=== PATIENT | male | born 1960 | race Caucasian/White ===

== ENCOUNTER 2021-12-03 13:19 | Emergency (ER) | payer BC ==
[~2021-12-03] VITALS: Ht 188 cm; Wt 89.6 kg
[~2021-12-03 13:19] MED LIST: ASPI-482 PO; ATOR40TA PO
[2021-12-03] MEDS: IV NORMAL SALINE 1000ML BAG 1,000 ML IV SCH (13:45)
[2021-12-03 13:56] LABS: BARBITURATES NEG (NEG); BENZODIAZEPINES NEG (NEG); CANNABINOIDS NEG (NEG); COCAINE NEG (NEG); METHADONE NEG (NEG); OPIATES NEG (NEG); PHENCYCLIDINE NEG (NEG)
[2021-12-03 13:57] LABS: AMPHETAMINE/METHAMPHETAMINE NEG (NEG)
[2021-12-03 13:59] LABS: BASO # 0.1 x10^3/uL (0.0-0.2); BASO % 1 % (0-3); EOS # 0.1 x10^3/uL (0.0-0.7); EOS % 1 % (0-3); HEMATOCRIT 46.2 % (39.0-53.0); HEMOGLOBIN 15.8 g/dL (13.0-17.5); LYMPH # 1.6 x10^3/uL (1.0-4.8); LYMPH % 15 % (24-48); MEAN CORPUSCULAR HEMOGLOBIN 32 pg (25-35); MEAN CORPUSCULAR HGB CONC 34 g/dL (31-37); MEAN CORPUSCULAR VOLUME 93 fL (79-100); MONO # 0.8 x10^3/uL (0.0-1.1); MONO % 8 % (0-9); NEUT # 8.1 x10^3/uL (1.8-7.7); NEUT % 76 % (31-73); PLATELET COUNT 305 x10^3/uL (140-400); RED BLOOD COUNT 4.98 x10^6/uL (4.30-5.70); RED CELL DISTRIBUTION WIDTH 14.2 % (11.5-14.5); WHITE BLOOD COUNT 10.6 x10^3/uL (4.0-11.0)
[2021-12-03 14:00] LABS: BACTERIA,URINE 0 /HPF (0-FEW)
--- NOTE | 2021-12-03 14:07 | PHYS DOC ---
Past Medical History Past Medical History: No Pertinent History Past Surgical History: Other Additional Past Surgical Histo: HERNIA SURGERY X 2, SHOULDER SURGERY Smoking Status: Current Every Day Smoker Alcohol Use: Occasionally Drug Use: None General Adult EDM: Chief Complaint: ABDOMINAL PAIN HPI: HPI: Patient is a 61 year old male who presents with right lower quadrant pain that is burning, lack of appetite for the last week, constipation, low back pain. He denies nausea, vomiting, diarrhea, fever, chest pain, shortness of air, headac he, dizziness, blood in his stool, urinary symptoms, blood in his urine. He rates his pain an 8 out of 10. States that nothing really makes it worse or better. History of smoking, hypertension, BPH, hernia surgery x2, shoulder surgery, hip replacement. Review of Systems: Review of Systems: Constitutional: Denies fever or chills. [] Eyes: Denies change in visual acuity. [] HENT: Denies nasal congestion or sore throat. [] Respiratory: Denies cough or shortness of breath. [] Cardiovascular: Denies chest pain or edema. [] GI: + abdominal pain, denies nausea, vomiting, bloody stools or diarrhea. + C onstipation . + Lack of appetite [] : Denies dysuria. [] Musculoskeletal: Denies back pain or joint pain. + Generalized weakness [] Integument: Denies rash. [] Neurologic: Denies headache, focal weakness or sensory changes. [] Endocrine: Denies polyuria or polydipsia. [] Lymphatic: Denies swollen glands. [] Psychiatric: Denies depression or anxiety. [] Heart Score: C/O Chest Pain: No Current Medications: Current Medications Medications (Trade) Dose Ordered Sig/Max Start Time Stop Time Status Last Admin Dose Admin Sodium Chloride 1,000 ml @ 1,000 mls/hr Q1H 12/03/21 13:45 12/03/21 14:44 Allergies: Allergies: Allergies Coded Allergies Type Severity Reaction Last Updated Verified No Known Drug Allergies 06/20/15 No Physical Exam: PE: Constitutional: Well developed, well nourished, no acute distress, non-toxic appearance. [] HENT: Normocephalic, atraumatic, bilateral external ears normal, oropharynx moist, no oral exudates, nose normal. [] Eyes: PERRLA, EOMI, conjunctiva normal, no discharge. [] Neck: Normal range of motion, no tenderness, supple, no stridor. [] Cardiovascular:Heart rate regular rhythm, no murmur [] Lungs & Thorax: Bilateral breath sounds clear to auscultation [] Abdomen: Bowel sounds normal, soft, RLQ tenderness, no masses, no pulsatile ma sses. [] Skin: Warm, dry, no erythema, no rash. [] Back: No tenderness, no CVA tenderness. [] Extremities: No tenderness, no cyanosis, no clubbing, ROM intact, no edema. [] Neurologic: Alert and oriented X 3, normal motor function, normal sensory function, no focal deficits noted. [] Psychologic: Affect normal, judgement normal, mood normal. [] Current Patient Data: Labs: Laboratory Tests Test 12/03/21 13:35 Urine Collection Type Void Urine Color (Auto) Yellow Urine Turbidity Clear Urine pH (Auto) 5.0 (<5.0-8.0) Urine Specific [place] 1.029 (1.000-1.030) Urine Protein (Auto) Negative mg/dL (Negative) Urine Glucose (Auto)(UA) Negative mg/dL (Negative) Urine Ketones (Auto) 10 mg/dL (Negative) Urine Blood (Auto) Negative (Negative) Urine Nitrite Negative (Negative) Urine Bilirubin (Auto) Negative (Negative) Urine Urobilinogen (Auto) 2 mg/dL (Normal) Urine Leukocyte Esterase (Auto) Negative (Negative) Urine RBC 1-2 /HPF (0-2) Urine WBC 1-4 /HPF (0-4) Urine Squamous Epithelial Cells Occ /LPF Urine Bacteria 0 /HPF (0-FEW) Urine Mucus Mod /LPF Urine Opiates Screen Neg (NEG) Urine Methadone Screen Neg (NEG) Urine Barbiturates Neg (NEG) Urine Phencyclidine Screen Neg (NEG) Urine Amphetamine/Methamphetamine Neg (NEG) Urine Benzodiazepines Screen Neg (NEG) Urine Cocaine Screen Neg (NEG) Urine Cannabinoids Screen Neg (NEG) Urine Ethyl Alcohol Neg (NEG) EKG: EK and read by Dr. Hernandez is a sinus rhythm and no STEMI Radiology/Procedures: Radiology/Procedures: [] Impression: [facility] [address] [place] [address] IMAGING REPORT Signed PATIENT: ALEX PARIS ACCOUNT: [id number] : 1960 LOCATION: ER AGE: 61 SEX: M EXAM STATUS: REG ER ORD. PHYSICIAN: MERYL CROUCH APRN REASON: rlq pain PROCEDURE: CT ABD PELV W/ IV CONTRST ONLY Exam Date: 12/03/2021 2:[address] ABDOMEN+PELVIS W Indication: Reason: rlq pain / Spl. Instructions: omni 300 75ml / History: . TECHNIQUE: CT examination of the abdomen and pelvis was performed following the administration of nonionic intravenous contrast. One or more of the following dose reduction techniques were utilized: *Automated exposure control (AEC) *Adjustment of mA and/or kV according to patient size *Use of iterative reconstruction technique *CT scan done according to ALARA, or ALARA/IMAGE GENTLY FINDINGS: The visualized lung bases demonstrate emphysematous changes and possible fibrosis. Bilateral hypodense adrenal nodules are noted measuring 2.7 cm on the right and 2.3 cm on the left, both measuring 14 Hounsfield units, consistent with lipid rich adrenal adenomas. The liver, gallbladder, spleen, pancreas, and kidneys are otherwise normal. Urinary bladder is normal in appearance. There is no bowel obstruction or inflammation. The appendix is normal. There is localized fusiform ectasia of the infrarenal abdominal aorta up to 2.6 cm in diameter. Mild atherosclerotic calcifications are seen. No lymphadenopathy or ascites is seen. Degenerative changes are seen in the spine. IMPRESSION: No evidence of acute intra-abdominal pathology. Bilateral hypodense adrenal nodules, likely lipid rich adrenal adenomas. Emphysematous changes and possible fibrosis noted in the lung bases. Electronically signed by: Shahnaz Martini MD (12/03/2021 3:16 PM) [id number] DICTATED and SIGNED BY: SHAHNAZ MARTINI MD DATE: 12/03/21 1510 Course & Med Decision Making: Course & Med Decision Making Pertinent Labs and Imaging studies reviewed. (See chart for details) See HPI. Alert and oriented x4. Ambulatory steady gait. Speaks in full clear sentences. Abdomen is soft but there is right lower quadrant tenderness without rebound tenderness. Skin pink warm and dry. Afebrile. [] Dragon Disclaimer: Dragon Disclaimer: This electronic medical record was generated, in whole or in part, using a voice recognition dictation system. Departure Departure Impression: Primary Impression: Pain, abdominal, nonspecific Additional Impression: Constipation Qualified Codes: K59.00 - Constipation, unspecified Disposition: HOME / SELF CARE / HOMELESS Condition: STABLE Referrals: RAKESH TRUJILLO (PCP) TERA AL MD Patient Instructions: Abdominal Pain (Nonspecific), Constipation, Adult Additional Instructions: Take medication as prescribed. Drink plenty of fluids to help with constipation. Follow-up with your primary care provider or a gastrointestinal doctor if needed. If you begin vomiting and having more severe pain return to emergency room. Scripts Magnesium Citrate (MAGNESIUM CITRATE) 296 Ml Solution 296 ML PO ONCE, #296 ML Prov: MERYL CROUCH APRN 12/03/21 MERYL CROUCH APRN December 03, 2021 14:07
[2021-12-03 14:11] LABS: CREATININE 0.6 mg/dL (0.7-1.3); GFR 137.4; POTASSIUM 4.3 mmol/L (3.5-5.1)
[2021-12-03] MEDS ORDERED: CONTRAST GIVEN. MC PRN (14:15)
[2021-12-03 14:16] LABS: ALBUMIN 3.9 g/dL (3.4-5.0); MAGNESIUM 1.9 mg/dL (1.8-2.4); TOTAL BILIRUBIN 0.4 mg/dL (0.2-1.0)
[2021-12-03] MEDS: IOHEXOL 300 MG/ML 100ML VIAL. IV ONE (14:39)
--- NOTE | 2021-12-03 15:19 | RAD ---
Exam Date: 12/03/2021 2:[address] ABDOMEN+PELVIS W Indication: Reason: rlq pain / Spl. Instructions: omni 300 75ml / History: . TECHNIQUE: CT examination of the abdomen and pelvis was performed following the administration of no nionic intravenous contrast. One or more of the following dose reduction techniques were utilized: *Automated exposure control (AEC) *Adjustment of mA and/or kV according to patient size *Use of iterative reconstruction technique *CT scan done according to ALARA, or ALARA/IMAGE GENTLY FINDINGS: The visualized lung bases demonstrate emphysematous changes and possible fibrosis. Bilateral hypodense adrenal nodules are noted measuring 2.7 cm on the right and 2.3 cm on the left, b oth measuring 14 Hounsfield units, consistent with lipid rich adrenal adenomas. The liver, gallbladder, spleen, pancreas, and kidneys are otherwise normal. Urinary bladder is normal in appearance. There is no bowel obstruction or inflammation. The appendix is normal. There is localized fusiform ectasia of the infrarenal abdominal aorta up to 2.6 cm in diameter. Mild atherosclerotic calcifications are seen. No lymphadenopathy or ascites is seen. Degenerative changes are seen in the spine. IMPRESSION: No evidence of acute intra-abdominal pathology. Bilateral hypodense adrenal nodules, likely lipid rich adrenal adenomas. Emphysematous changes and possible fibrosis noted in the lung bases. Electronically signed by: Vincent Martini MD (12/03/2021 3:16 PM) [id number]
[2021-12-03 15:24] VITALS: BP 132/71
[2021-12-03] MEDS ORDERED: MAGN296S68 PO (15:36)
--- NOTE | 2021-12-04 15:06 | EKG ---
[facility] [address] [place] [address] Test Date: 2021-12-03 Test Time: 14:00:36 Pat Name: ALEX PARIS Department: Room: Gender: [facility] Director: : 1960 Requested By: MERYL CROUCH Order Number: [id number] Reading MD: Lacho Bruce MD Measurements Intervals [place] Rate: 76 P: 70 NV: 140 QRS: 60 QRSD: 102 T: 41 QT: 382 QTc: 434 Interpretive Statements SINUS RHYTHM NON-SPECIFIC ST/T CHANGES Electronically Signed On 12-05-2021 11:17:55 CDT by Lacho Bruce MD
== END 2021-12-03 15:44 | disposition home or self-care (01) ==
LOC: ER 13:19
DX: K59.00 Constipation, unspecified (principal); F17.200 Nicotine dependence, unspecified, uncomplicated
CPT/HCPCS: 36415; 74177; 80053; 80307; 81001; 83690; 83735; 84484; 85025; 93005; 96360; 96361; 99285; J7030; Q9967